=== PATIENT | male | born 2000 | race Caucasian/White ===

== ENCOUNTER 2021-04-27 13:48 | Outpatient (CLI) | payer OTHER, SELFPAY ==
--- NOTE | ~2021-04-27 | XR_ITS ---
EXAMINATION: XR pelvis 1-2V DATE: 04/27/2021 14:34 INDICATION: Low abdominal pain. Low back pain. TECHNIQUE: An anteroposterior view of the pelvis was obtained on 2 radiographs. COMPARISON: None. FINDINGS: Bone alignment is normal. No fracture. Joint spaces are well maintained. A calcification in right pelvis is likely a phlebolith. IMPRESSION: 1. Normal pelvis. Reviewed, dictated and finalized at location A. S CLERK IMPRESSION: 1. Normal pelvis.
--- NOTE | ~2021-04-27 | XR_ITS ---
EXAMINATION: XR abdomen obstructive series DATE: 04/27/2021 14:34 INDICATION: Low abdominal pain. Constipation. TECHNIQUE: Upright and supine views of the abdomen on 3 radiographs were obtained. COMPARISON: None. FINDINGS: There are no dilated loops of bowel. There is a moderate volume of stool in the colon. No f ree intraperitoneal gas. IMPRESSION: 1. Normal bowel gas pattern. Reviewed, dictated and finalized at location A. CH RENTAL MANAGER
[2021-04-27 15:23] LABS: Prostate Specific Antigen 0.4 ng/mL (< OR = 4.0)
== END 2021-04-27 13:49 | disposition home or self-care (01) ==
PROVIDERS: PCP Family Medicine; Visit Provider Physician Assistant
DX: R10.2 Pelvic and perineal pain (principal)
CPT/HCPCS: 36415; 72170; 74019; 84153